=== PATIENT | male | born 1985 | race American Indian/Alaskan Native ===

== ENCOUNTER 2017-08-30 10:46 | Outpatient (CLI) | payer BC ==
--- NOTE | 2017-08-30 12:03 | Magnetic Resonance Report ---
MRI OF THE BRAIN WITHOUT CONTRAST: HISTORY: Headache PROCEDURE: Multiplanar, multisequence MR imaging of the brain without IV contrast was performed. FINDINGS: The brain parenchyma signal intensity and its gillette white interface are within normal limits on all sequences. No evidence for acute ischemia, hemorrhage or mass. No chronic infarct or extra-axial fluid collection. The midline structures are central. The basal cisterns are patent. Normal ventricular size. The orbital cavities and sella turcica demonstrate no abnormality. Mild cerebellar volume loss is suspected for this patient's age. The significance of this is unclear. The visualized paranasal sinuses and mastoid air cells are well aerated. IMPRESSION: Mild cerebellar volume loss. Otherwise, unremarkable MRI of the brain.
== END 2017-08-30 10:47 | disposition home or self-care (01) ==
LOC: MRI 10:46
PROVIDERS: ATTEND Psychiatry & Neurology Neurology
DX: G43.709 Chronic migraine without aura, not intractable, without status migrainosus (principal); R27.0 Ataxia, unspecified
CPT/HCPCS: 70551